=== PATIENT | female | born 1995 | race Caucasian/White ===

== ENCOUNTER 2019-07-18 10:25 | Emergency (ER) | payer OTHER ==
[~2019-07-18] VITALS: Ht 175.3 cm; Wt 90.7 kg
[~2019-07-18 10:25] MED LIST: ABILIFY 2 MG2 MG; AMOXICILLIN500 M1 PO; CELEXA 10 MG TA10 M1; CLEOCIN HCL150 MG PO; GLUCOPHAGE500 MG; IBUPROFEN 600600 M1 PO; LIDOCAINE VISC100 M1 SWISH&SPIT; NORCO 5-325 TA1 EAC1 PO; TRILEPTAL150 MG PO; WELLBUTRIN 100100 MG PO
[2019-07-18] MEDS ORDERED: PREDNISONE 20 M20 M1 PO (10:44)
[2019-07-18 10:53] VITALS: BP 116/58
== END 2019-07-18 10:54 | disposition home or self-care (01) ==
LOC: M.ERS 10:25
DX: L24.7 Irritant contact dermatitis due to plants, except food (principal); E11.9 Type 2 diabetes mellitus without complications